=== PATIENT | female | born 1975 | race American Indian/Alaskan Native ===

== ENCOUNTER 2021-10-18 08:48 | Day surgery (SDC) | payer OTHER ==
[~2021-10-18 08:48] MED LIST: SODIUM CHLORIDE 0.9% 1000 ML 1,000 ML IV SCH
--- NOTE | 2021-10-18 09:32 | Anesthesia Day of Surgery ---
Anesthesia Day of Surgery - Day of Surgery Patient Examined: Yes Patient H&P Reviewed: Yes Patient is NPO: Yes
--- NOTE | 2021-10-18 09:41 | Anesthesia Consultation ---
Anesthesia Consult and Med Hx - Airway Anesthetic Teeth Evaluation: Good ROM Head & Neck: Adequate Mental/Hyoid Distance: Adequate Mallampati Class: Class II Intubation Access Assessment: Good - Pre-Operative Health Status ASA Pre-Surgery Classification: ASA3 Proposed Anesthetic Plan: MAC - Pulmonary Hx Smoking: No Hx Sleep Apnea: No - Gastrointestinal Hx Ulcer: Yes Hx Gastroesophageal Reflux Disease: No - Hematic Hx Sickle Cell Disease: No - Other Systems Hx Obesity: Yes
[2021-10-18] MEDS ORDERED: LIDOCAINE MPF (2%) 20 MG/1 ML VIAL 5 ML ONE (10:37)
[2021-10-18] MEDS ORDERED: ONDANSETRON 4 MG/2 ML INJ ONE (10:37)
[2021-10-18] MEDS ORDERED: propofoL 200 MG/20 ML VIAL IV ONE (10:37)
--- NOTE | 2021-10-18 11:16 | Procedure Note ---
Date of procedure: 10/18/21 Pre-op diagnosis: Colon Polyp Screening/ Abdominal Pain Post-op diagnosis: other (No Colon Polyps noted/ No Diverticular Disease noted/ R/O Microscopic Colitis/ R/O Ileitis/ Minor,Internal Hemorrhoids) Procedure: Colonoscopy with Biopsy Anesthesia: MAC Surgeon: ALESHA LUTHER Estimated blood loss: minimal Pathology: list Specimen disposition: to lab Condition: stable Disposition: same day (Avoid aspirin and NSAID for 5 days; otherwise resume previous medication. Treat with OTC Probiotic and prn Be tyl for abdominal pain.)
--- NOTE | 2021-10-18 12:57 | Post Anesthesia Evaluation ---
- Post Anesthesia Evaluation Patient Participated: Yes Airway Patent: Yes Stable Respiratory Function: Yes Nausea/Vomiting: No Temp > 96.8F: Yes Pain Manageable: Yes Adequeate Hydration: Yes Anesthesia Complications: No Block Receding Appropriately: Not Applicable Patient on Ventilator: No
[2021-10-18 13:33] VITALS: BP 138/89
--- NOTE | 2021-10-25 09:11 | Operative Report ---
DATE OF SURGERY: 10/18/2021 PROCEDURE PERFORMED: Colonoscopy and biopsy report. INDICATIONS: This is a 46-year-old slightly obese -[place] female, who has been having some longstanding problems with abdominal pain and possible colitis and possible peptic ulcer disease. This is the report for the colonoscopy. SOCIAL HISTORY: Denies history of smoking or alcohol use. She has had her COVID vaccine. No cardiac issues. No flu shots. DESCRIPTION OF PROCEDURE: Colonoscopy was done after getting informed consent with MAC anesthesia. Initial rectal examination was unremarkable. The instrument was passed through the rectum onto the cecum, which was identified with ileocecal valve and appendiceal orifice. The terminal ileum was intubated, showed normal mucosa. Random biopsy was done from the terminal ileum to rule out for possible ileitis. Subsequently, random biopsies were done from the cecum, ascending colon, transverse colon, descending colon, and sigmoid to rule out for possible microscopic colitis with minimal bleeding. There was no diverticular disease noted and no colon polyps noted. There was some minor internal hemorrhoid noted on the retroverted view. ASSESSMENT: Abdominal pain, rule out microscopic colitis, rule out ileitis, with minimal bleeding. No diverticular disease noted. No colon polyps noted. PLAN: To have the patient avoid aspirin and aspirin-related products for the next few days, otherwise resume previous medication. The patient is to be treated with p.r.n. dose of Bentyl for abdominal pain and [id number] probiotics and asked to follow up in the office in 1-2 weeks' time. Procedure was done in the GI lab with assistance of the GI lab team, which included the GI nurse, the ground water technician and with assistance of Anesthesia. Procedure was done on 10/18/2021. TID: [id number] RECEIPT: [id number] ABENA/[id number]
== END 2021-10-18 11:50 | disposition home or self-care (01) ==
LOC: GIO 08:48
DX: R10.9 Unspecified abdominal pain (principal); K51.90 Ulcerative colitis, unspecified, without complications; K63.89 Other specified diseases of intestine; K64.8 Other hemorrhoids; R10.84 Generalized abdominal pain; K90.0 Celiac disease; Z86.010 Personal history of colon polyps; Z90.710 Acquired absence of both cervix and uterus; E66.9 Obesity, unspecified; Z68.41 Body mass index [BMI] 40.0-44.9, adult
CPT/HCPCS: 45380; 81025; 88305; J2405; J2704; J3490; J7030; J7120; Q0162